=== PATIENT | female | born 1940 | race American Indian/Alaskan Native ===

== ENCOUNTER 2016-12-25 14:02 | Emergency (ER) | payer MEDICARE ==
--- NOTE | 2016-12-25 15:02 | XRay Report ---
Right femur 2 views: History: Fall and pain. Findings: No fracture or previous fracture lytic lesion at femur. Impression: No evidence of acute fracture or femur. A Right hip 2 views: Findings: Plate and screws at proximal femur and hip nail through the neck of the femur stabilizes the intertrochanteric old fracture. No evidence of new fracture is identified. No previous studies available for comparison. Impression: No acute fracture.
--- NOTE | 2016-12-25 15:44 | Emergency Department Report ---
ED General Adult HPI - General Chief complaint: Fall Stated complaint: RT LEG PAIN Time Seen by Provider: 12/25/16 15:34 Source: patient, EMS (ems notes not available at time of chart dictation) Mode of arrival: Stretcher Limitations: Altered Mental Status, Physical Limitation - History of Present Illness Initial comments: Patient is a poor historian, typically alert 1. History obtained by speaking to nursing support worker, Heidi Meyer at [facility]. The patient had a mechanical fall today. As per Mr. Meyer, patient fell from a sitting position, landing on her hip and leg. The patient is oriented to person, does not think the patient hit her head. The patient is unable to describe exacerbating or relieving factors of her pain. Past medical history includes dementia/Alzheimer's. -: Sudden Location: right, lower extremity Improves with: other (as per history of present illness) Worsens with: other (as per history of present illness) Associated Symptoms: other (as per history of present illness) - Related Data Previous Rx's Medication Instructions Recorded Last Taken Type Nitrofurantoin [place]/M-Cryst 100 mg PO Q12HR #14 capsule 12/25/16 Unknown Rx [Macrobid CAP] Allergies Allergy/AdvReac Type Severity Reaction Status Date / Time No Known Allergies Allergy Unverified 12/25/16 14:22 ED Review of Systems ROS: Stated complaint: RT LEG PAIN Other details as noted in HPI Comment: Unobtainable due to pts medical conditions ED Past Medical Hx - Past Medical History Previous Medical History?: Yes Hx Psychiatric Treatment: Yes (Alz) - Surgical History Past Surgical History?: No - Social History Smoking Status: Never Smoker Substance Use Type: None - Medications Home Medications: Home Medications Medication Instructions Recorded Confirmed Last Taken Type Nitrofurantoin [place]/M-Cryst 100 mg PO Q12HR #14 capsule 12/25/16 Unknown Rx [Macrobid CAP] ED Physical Exam - General Limitations: Altered Mental Status General appearance: alert, in no apparent distress - Head Head exam: Present: atraumatic, normocephalic - Eye Eye exam: Present: normal appearance - ENT ENT exam: Present: normal exam, normal orophraynx, mucous membranes moist - Neck Neck exam: Present: normal inspection, full ROM. Absent: tenderness, meningismus - Respiratory Respiratory exam: Present: normal lung sounds bilaterally. Absent: respiratory distress, wheezes, rales, rhonchi, stridor, chest wall tenderness, accessory muscle use, decreased breath sounds, prolonged expiratory - Cardiovascular Cardiovascular Exam: Present: regular rate, normal rhythm, normal heart sounds. Absent: bradycardia, tachycardia, irregular rhythm, systolic murmur, diastolic murmur, rubs, gallop - GI/Abdominal GI/Abdominal exam: Present: soft, normal bowel sounds. Absent: distended, tenderness, guarding, rebound, rigid, pulsatile mass - Extremities Exam Extremities exam: Present: normal inspection, tenderness (there is tenderness over the right and left hips. The pelvis is stable. The compartments are soft. Patient is moving 4 extremities spontaneously), normal capillary refill. Absent: pedal edema, joint swelling, calf tenderness - Back Exam Back exam: Present: normal inspection, full ROM. Absent: tenderness, CVA tenderness (R) - Neurological Exam Neurological exam: Present: altered, other (patient oriented times self. No obvious facial droop. Moves 4 extremities spontaneously.) - Psychiatric Psychiatric exam: Present: normal affect, normal mood - Skin Skin exam: Present: warm, dry, intact, normal color. Absent: rash ED Course Vital Signs 12/25/16 12/25/16 12/25/16 15:34 15:55 15:57 Temperature 99.1 F Pulse Rate 70 Respiratory 18 Rate Blood Pressure Blood Pressure 130/63 [Left] O2 Sat by Pulse 67 L 100 Oximetry 12/25/16 12/25/16 16:00 20:53 Temperature Pulse Rate 76 Respiratory 18 Rate Blood Pressure 121/76 Blood Pressure 124/74 [Left] O2 Sat by Pulse 100 Oximetry - Reevaluation(s) Reevaluation #1: 12/25/16 16:09 Differential diagnosis: Intracranial injury, cervical spine injury, hip pain, hip fracture, hip contusion, chronic dementia, pneumonia, urinary tract infection Assessment and plan: 76-year-old female status post mechanical fall she is afebrile with reassuring vital signs. Uncertain if she hit her head. Patient is demented, and is unable to offer additional history. We will obtain noncontrast CT scan of the brain and cervical spine, as well as bony pelvis. Plain films of the femur and hip were negative. X-ray of the chest was not consistent with pneumonia. 12/25/16 16:11 Reevaluation #2: 12/25/16 17:[address] scan negative for genetic disease. Urinalysis pending. Constipation suggested. Reevaluation #3: 12/25/16 17:41 urinalysis nitrite positive, 2+ bacteria. Suggestive of urinary tract infection. Macrobid ordered. Laboratory studies, radiology studies reviewed. Patient will be discharged. ED Medical Decision Making - Lab Data Result diagrams: 12/25/16 16:21 12/25/16 16:21 Vital Signs 12/25/16 12/25/16 12/25/16 15:34 15:55 15:57 Temperature 99.1 F Pulse Rate 70 Respiratory 18 Rate Blood Pressure 130/63 [Left] O2 Sat by Pulse 67 L 100 Oximetry - Radiology Data Radiology results: report reviewed, image reviewed interpreted by me: X-ray of the chest is negative, rotated, hyperinflated lungs. X-ray of the pelvis is negative. X-ray of the femur is negative. CT scan of the brain, cervical spine, bony pelvis negative. Constipation suggested. DJD is noted. Critical care attestation.: If time is entered above; I have spent that time in minutes in the direct care of this critically ill patient, excluding procedure time. ED Disposition Clinical Impression: Fall, UTI (urinary tract infection) Disposition: DC/TX ANOTHER TYPE HEALTHCARE Is pt being admited?: No Does the pt Need Aspirin: No Condition: Stable Instructions: Urinary Tract Infection in Women (ED), Fall Prevention (ED) Additional Instructions: Laboratory studies suggested urinary tract infection. CT scan of the brain, cervical spine, pelvis demonstrated no fracture or dislocation. Cultures was sent today, results will be available in the next 3-5 days. Have the patient follow up with her primary care doctor within the next week. Have the patient' s primary care doctor contact the medical records department to obtain culture results. Return to the ER readily with fevers, chills, chest pain, shortness of breath, confusion, intractable nausea or vomiting, inability to tolerate liquid feeds. Prescriptions: Nitrofurantoin [place]/M-Cryst [Macrobid CAP] 100 mg PO Q12HR #14 capsule Referrals: EVELINA CONTRERAS [Other] - 3-5 Days
[2016-12-25 16:44] LABS: Hematocrit 39.8 % (30.3-42.9); Hemoglobin 12.9 gm/dl (10.1-14.3); Mean Corpuscular HGB Conc 33 % (30-34); Mean Corpuscular Hemoglobin 33 pg (28-32); Mean Corpuscular Volume 102 fl (79-97); Platelet Count 255 K/mm3 (140-440); Red Cell Distribution Width 13.3 % (13.2-15.2); White Blood Count 12.6 K/mm3 (4.5-11.0)
[2016-12-25 16:58] LABS: Anion Gap 20 mmol/L; Blood Urea Nitrogen 15 mg/dL (7-17); Calcium 9.5 mg/dL (8.4-10.2); Carbon Dioxide 24 mmol/L (22-30); Chloride 105.1 mmol/L (98-107); Glucose 109 mg/dL (65-100); Potassium 3.8 mmol/L (3.6-5.0); Sodium 145 mmol/L (137-145)
--- NOTE | 2016-12-25 17:10 | Cat Scan Report ---
FINAL REPORT EXAM: CT CERVICAL SPINE WO CON HISTORY: fall ams TECHNIQUE: CT examination of the cervical spine without IV contrast PRIORS: None. FINDINGS: Prevertebral soft tissues are without swelling. No evidence of cervical fracture or vertebral compression. Degenerative changes are multilevel at the vertebral endplates, facet joints, and uncinate joints. Anterolisthesis: Grade 1 C7-T1 Retrolisthesis: None. Disc narrowing: C2-3 moderate, C3-4 moderate, C4-5 severe, C5-6 severe, C6-7 severe, C7-T1 moderate Vertebral endplate, uncinate, and facet degenerative hypertrophic change is associated with bilateral osseous neural foraminal stenosis. Pleural and parenchymal scar in both lung apices IMPRESSION: No acute skeletal pathology in the cervical spine Multilevel degenerative change and disc narrowing Grade 1 degenerative anterolisthesis at C7-T1
--- NOTE | 2016-12-25 17:22 | Cat Scan Report ---
FINAL REPORT EXAM: CT PELVIS WO CON HISTORY: fall ams leg pain hip pain TECHNIQUE: CT examination of the pelvis without IV contrast PRIORS: None. FINDINGS: Right proximal femur metallic surgical hardware. Metal artifact limits the examination. Arm at the patient's side degrades image quality and limits the examination. Normal-appearing urinary bladder. Uterus not visualized. No adnexal abnormality. Rectum distended with feces. Prominent feces throughout sigmoid colon and visualized portion of more proximal colon. Findings suggest constipation. Normal caliber distal abdominal aorta and IVC. Intact abdominal wall. No definite pelvic free fluid. No small bowel distention. Healed right pubis and pubic rami fractures. No evidence of spondylolysis. Grade 1 degenerative spondylolisthesis at L4-5 and the lumbosacral junction, designated L5-S1. Degenerative change throughout the regional skeleton. No definite evidence of acute fracture or dislocation. IMPRESSION: No acute skeletal pathology Prominent feces with rectal distention suggestive of constipation Healed right pubis and pubic rami fractures L4-5 and L5-S1 grade 1 degenerative spondylolisthesis without spondylolysis
--- NOTE | 2016-12-25 17:25 | Cat Scan Report ---
FINAL REPORT EXAM: CT HEAD/BRAIN WO CON HISTORY: fall ams TECHNIQUE: CT examination of the head without IV contrast PRIORS: None. FINDINGS: No acute air-fluid level visualized in the included air-filled sinuses. Bone windows demonstrate no fracture. There is ventricular and sulcal prominence compatible with global cerebrocortical atrophy. Low attenuation regions in the cerebral white matter, while nonspecific, are present and usually attributed to chronic ischemic gliosis. The differential includes demyelination in the appropriate clinical setting. The brain contains no mass, mass effect, hemorrhage, or acute infarct. There is no extra-axial intracranial bleed or brain bleed. There is no midline shift. IMPRESSION: No acute CVA, intracranial bleed, or brain mass
[2016-12-25 17:39] LABS: Bacteria,Urine 2+ /HPF (Negative); Bilirubin,Urine NEG (Negative); Blood,Urine NEG (Negative); Ketones,Urine NEG (Negative); Leukocyte Esterase,Urine TR (Negative); Mucus,Urine 3+ /HPF; Nitrite,Urine POS (Negative); Protein,Urine <15 mg/dL mg/dL (Negative); RBC,Urine < 1.0 /HPF (0.0-6.0)
[2016-12-25 20:55] VITALS: BP 124/74
--- NOTE | 2016-12-26 07:24 | XRay Report ---
AP CHEST: HISTORY: chest pain No comparison. Borderline to mild cardiomegaly is suspected. Normal pulmonary vascularity. The lungs are clear. No acute thoracic deformity is appreciated. IMPRESSION: Borderline to mild cardiomegaly. Lungs clear.
== END 2016-12-25 20:53 | disposition other institution (70) ==
LOC: ED 14:02
DX: M25.551 Pain in right hip (principal); N39.0 Urinary tract infection, site not specified; W17.89XA Other fall from one level to another, initial encounter; Y93.89 Activity, other specified; Y99.8 Other external cause status; Y92.89 Other specified places as the place of occurrence of the external cause; G30.9 Alzheimer's disease, unspecified; F02.80 Dementia in other diseases classified elsewhere, unspecified severity, without behavioral disturbance, psychotic disturbance, mood disturbance, and anxiety
CPT/HCPCS: 36415; 51701; 70450; 71010; 72125; 72192; 80048; 81001; 82550; 85027; 87076; 87086; 87186